=== PATIENT | female | born 1985 | race Caucasian/White ===

== ENCOUNTER → 2023-01-01 08:45 | Outpatient (CLI) | payer MEDICAID, SELFPAY ==
[2023-01-01 19:39] LABS: Amphetamine/Metha Screen,Urine Negative ng/ml (<1000)
[2023-01-01 19:40] LABS: Barbiturates Screen,Urine Negative ng/ml (<200); Benzodiazepines Screen,Urine Negative ng/ml (<200)
[2023-01-01 19:41] LABS: Cannabinoid Screen,Urine Positive ng/ml (<50)
[2023-01-01 19:42] LABS: Cocaine Screen,Urine Negative ng/ml (<300)
[2023-01-01 19:43] LABS: Opiate Screen,Urine Negative ng/ml (<300)
[2023-01-01 19:44] LABS: Phencyclidine Screen,Urine Negative ng/ml (<25)
[2023-01-01 19:57] LABS: Methadone Screen,Urine Negative ng/ml (<300)
== END ==
PROVIDERS: PCP Emergency Medicine; Visit Provider Emergency Medicine
DX: Z79.899 Other long term (current) drug therapy (principal)
CPT/HCPCS: 80305